=== PATIENT | female | born 1965 | race Caucasian/White ===

== ENCOUNTER 2023-01-31 14:55 | Outpatient (CLI) | payer BC, SELFPAY | END 2023-01-31 14:56 | disposition home or self-care (01) | PROVIDERS: PCP Family Medicine; Visit Provider Family Medicine | DX: Z00.00 Encounter for general adult medical examination without abnormal findings (principal); E78.5 Hyperlipidemia, unspecified; E55.9 Vitamin D deficiency, unspecified; I10 Essential (primary) hypertension | CPT/HCPCS: 80053; 80061; 82306; 84443 ==

== ENCOUNTER 2023-07-18 08:50 | Outpatient (CLI) | payer BC, SELFPAY | END 2023-07-18 08:51 | disposition home or self-care (01) | LOC: AMB 07-27 03:50 | PROVIDERS: PCP Family Medicine; Visit Provider Student in an Organized Health Care Education/Training Program | DX: R06.02 Shortness of breath (principal) | CPT/HCPCS: A0425; A0427 ==

== ENCOUNTER 2023-07-18 09:06 | Emergency (ER) | payer BC, SELFPAY ==
[2023-07-18 09:14] VITALS: BP 134/89; PULSE 86; RESP 18; TEMP 35.7; O2SAT 95
--- NOTE | 2023-07-18 09:28 | XR_ITS ---
Final Report Patient: JUVENCIO CASAS Facility:?[facility] Patient ID:?[id number] Site Patient ID:?[id number]. Site :?[id number] Study:?XRay Chest 2V-07/18/2023 9:53:36 AM Ordering Physician:?DR. RAND Final Report: Indication: Short of breath Technique: PA and lateral chest Comparison: None Findings: No focal or diffuse opacity. No effusion. No pneumothorax. Normal cardiomediastinal silhouette. Partially visualized lower cervical ACDF. No acute appearing osseous abnormalities. Impression: Lungs clear. No acute appearing findings. Dictated by Jodi Hicks MD @ 07/18/2023 9:56:46 AM (Electronic Signatur
[2023-07-18 09:46] LABS: Basophils Absolute Auto 0.03 K/uL (0.00-0.30); Basophils Percent Auto 0.4 % (0.0-3.0); Eosinophils Absolute Auto 0.23 K/uL (0.00-0.50); Eosinophils Percent Auto 2.9 % (0.0-7.0); Hematocrit 42.1 % (33.0-51.0); Hemoglobin* 13.4 gm/dL (12.0-16.0); Immature Granulocytes Abs Auto 0.01 K/uL (0.00-0.30); Immature Granulocytes Pct Auto 0.1 %; Lymphocytes Percent Auto 19.9 % (20-44); Mean Corpuscular HGB Conc 32 gm/dL (32-36); Mean Corpuscular Hemoglobin 28 pg (26-34); Mean Corpuscular Volume 88 fL (80-100); Monocytes Percent Auto 7.2 % (0.0-11.0); Neutrophils Percent Auto 69.5 % (42.0-72.0); Platelet Count* 466 K/uL (140-440); RDW Coefficient of Variation % 13.3 % (11.5-15.5); Red Blood Count 4.79 m/uL (4.00-5.20); White Blood Count* 8.05 K/uL (4.50-11.00)
[2023-07-18 09:48] LABS: Slide Review Reflex No
[2023-07-18 10:03] LABS: Albumin* 4.2 g/dL (3.3-5.0); Chloride* 102 mmol/L (96-114)
[2023-07-18 10:04] LABS: Potassium* 3.7 mmol/L (3.6-5.1); Sodium* 136 mmol/L (135-149)
[2023-07-18 10:06] LABS: Bilirubin Total* 0.3 mg/dL (0.1-1.5); Creatinine* 0.6 mg/dL (0.5-1.5); Estimated Glomerular Filt Rate 106 ml/min
[2023-07-18 10:07] LABS: Alanine Aminotransferase* 39 U/L (4-35); Alkaline Phosphatase* 142 U/L (40-150); Anion Gap 11 mEq/L (7-15); Aspartate Amino Transferase* 36 U/L (12-35); Blood Urea Nitrogen* 14 mg/dL (7-30); Calcium* 9.4 mg/dL (8.4-10.6); Carbon Dioxide* 23 mmol/L (20-32); Glucose* 115 mg/dL (60-115); Total Protein* 7.7 g/dL (6.0-8.3)
[2023-07-18 10:14] LABS: D Dimer Quantitative* 0.22 ug/ml (0.00-0.50)
[2023-07-18 10:17] LABS: NT Pro B Type NatriureticPept* < 20 pg/mL
[2023-07-18 10:17] LABS: PCR FLU A Negative PCR FLU A (Negative); PCR FLU B Negative PCR FLU B (Negative); PCR RSV Negative PCR RSV (Negative); SARS PCR* Negative SARS-CoV-2 (Negative)
--- NOTE | 2023-07-18 10:59 | ED.SOB ---
HPI - SOB/Dyspnea General Date Seen: 07/18/23 Chief Complaint: Shortness of Breath/Dyspnea Stated Complaint: shortness of breath Time Seen by Provider: 07/18/23 09:08 Source: patient Mode of arrival: EMS Limitations: no limitations History of Present Illness HPI Narrative: Patient is a 57-year-old female with history of cigarette smoking, TIA, likely sleep apnea presenting to the emergency department for shortness of breath. She was brought in by EMS. She lives at the [facility] where she has been sober from meth for 7 years. Says she is having increased shortness of breath for past 2-3 days worse at night. Denies fever, cough, chest pain, weakness, numbness, headache, vision changes, abdominal pain, diarrhea, constipation. No history of blood clots in her legs or lungs. Did have bilateral lower extremity swelling couple days ago that has fully resolved now. States she is down to smoking only 1 cigarette today. She does states she has been having some fevers and chills but also states she has been having menopausal symptoms and the same time frame and does not now if but the same thing or different. No history of heart disease. She states she has been feeling very anxious lately is wondering if that is causing her symptoms. Is supposed to get sleep study tomorrow but had to cancel due to issues with transportation. Related Data Home Medications Medication Instructions Recorded Confirmed aspirin 325 mg tablet 325 mg PO QDAY 01/31/23 06/07/23 bupropion HCl 150 mg 24 hr tablet, 150 mg PO QAM 01/31/23 06/07/23 extended release cholecalciferol (vitamin D3) 25 25 mcg PO QDAY 01/31/23 06/07/23 mcg (1,000 unit) capsule fluoxetine 20 mg capsule 60 mg PO QDAY 01/31/23 06/07/23 levomefolate calcium 7.5 mg tablet 7.5 mg PO QDAY 01/31/23 06/07/23 (L-Methylfolate) multivitamin-ferrous 1 tab PO QAM 01/31/23 06/07/23 fumarate-folic acid 18 mg-400 mcg tablet (Certavite-Antioxidant) oxcarbazepine 150 mg tablet 150 mg PO QDAY 01/31/23 06/07/23 (Trileptal) oxcarbazepine 300 mg tablet 300 mg PO BID 01/31/23 06/07/23 (Trileptal) nortriptyline 25 mg capsule 25 mg PO QHS 06/07/23 06/07/23 Previous Rx's Medication Instructions Recorded atorvastatin 20 mg tablet 20 mg PO QDAY #90 tabs 06/07/23 losartan 25 mg tablet 25 mg PO QDAY #90 tabs 06/07/23 Allergies Allergy/AdvReac Type Severity Reaction Status Date / Time acetaminophen [From [place]] AdvReac Intermediate Vomiting Verified 06/07/23 14:03 gabapentin AdvReac Intermediate Vomiting Verified 06/07/23 14:03 hydrocodone [From [place]] AdvReac Intermediate Vomiting Verified 06/07/23 14:03 Review of Systems Status of ROS: Reports: 10 or more systems reviewed and unremarkable except as noted in History and below [facility] Medical History History of echocardiogram ?Z92.89 - Personal history of other medical treatment (ICD-10) Bilateral lower extremity edema ?R60.0 - Localized edema (ICD-10) Polysubstance use disorder ?F19.90 - Other psychoactive substance use, unspecified, uncomplicated (ICD-10) History of kidney stones ?Z87.442 - Personal history of urinary calculi (ICD-10) History of latent tuberculosis ?Z86.15 - Personal history of latent tuberculosis infection (ICD-10) History of recurrent TIAs (~2014) ?Z86.73 - Personal history of transient ischemic attack (TIA), and cerebral infarction without residual deficits (ICD-10) Hiatal hernia ?K44.9 - Diaphragmatic hernia without obstruction or gangrene (ICD-10) Lung nodule ?R91.1 - Solitary pulmonary nodule (ICD-10) Menopausal symptoms ?N95.1 - Menopausal and female climacteric states (ICD-10) Snores ?R06.83 - Snoring (ICD-10) PTSD (post-traumatic stress disorder) ?F43.10 - Post-traumatic stress disorder, unspecified (ICD-10) Depression ?F32.A - Depression, unspecified (ICD-10) BMI 37.0-37.9, adult ?Z68.37 - Body mass index [BMI] 37.0-37.9, adult (ICD-10) History of CVA (cerebrovascular accident) ?Z86.73 - Personal history of transient ischemic attack (TIA), and cerebral infarction without residual deficits (ICD-10) Surgical History History of fusion of cervical spine ?Z98.1 - Arthrodesis status (ICD-10) Family History Mother Coronary artery disease Depression Anxiety disorder Maternal Grandfather Coronary artery disease Maternal Grandmother Coronary artery disease Aunt Diabetes Sister Diabetes Depression Anxiety disorder Uncle Diabetes Social History Narrative: Single, lives in a recovery home in [place], 2 grown children in [place] Does not drink alcohol for 20 years, before then alcoholism Smokes 1 cigarette a day before then over 10 pack years History of methamphetamine addiction, In recovery since 2016 Smoking Status: Former smoker Non-prescribed substance use: former substance user Little interest or pleasure in doing things: several days Feeling down, depressed, or hopeless: several days Exam Narrative: Exam Narrative: Const: Well-nourished, Well-developed, in no distress Eyes: PERRL, no conjunctival injection, and symmetrical lids HENT: Atraumatic external nose and ears. Moist mucous membranes. Neck: Symmetric, trachea midline, No thyromegaly. CVS: RRR, No murmurs or gallops. Peripheral pulses 2+ and equal in all extremities RESP: Unlabored respiratory effort. Clear to auscultation bilaterally. GI: Nontender/Nondistended, No rebound or guarding. MSK:Extremities w/o deformity, Normal Active ROM Skin: Warm, Dry. No rashes or lesions. Neuro: Normal Muscle tone, No focal neurological deficits. Psych: Awake, Alert, & Oriented x3. Appropriate mood and affect. Const: Vital Signs, click to edit/add: Vital Signs - 24 hr 07/18/23 09:14 Temperature 96.3 F L Pulse Rate [Pulse Oximeter] 86 Respiratory Rate 18 Blood Pressure [Le ft Upper Arm] 134/89 Pulse Oximetry 95 Oxygen Delivery Me thod Room Air Course Vital Signs Vital signs: Initial Vital Signs Temperature 96.3 F L 07/18/23 09:14 Temperature Source Temporal Artery Scan 07/18/23 09:14 Pulse Rate 86 07/18/23 09:14 Pulse Rhythm Regular 07/18/23 09:14 Respiratory Rate 18 07/18/23 09:14 Blood Pressure 134/89 07/18/23 09:14 Blood Pressure Mean 104 07/18/23 09:14 Blood Pressure Position Supine 07/18/23 09:14 Pulse Oximetry 95 07/18/23 09:14 Oxygen Delivery Method Room Air 07/18/23 09:14 Vital Signs Temperature 96.3 F L 07/18/23 09:14 Pulse Rate 86 07/18/23 09:14 Respiratory Rate 18 07/18/23 09:14 Blood Pressure 134/89 07/18/23 09:14 Pulse Oximetry 95 07/18/23 09:14 Oxygen Delivery Method Room Air 07/18/23 09:14 Temperature 96.3 F L 07/18/23 09:14 Pulse Rate 86 07/18/23 09:14 Respiratory Rate 18 07/18/23 09:14 Blood Pressure 134/89 07/18/23 09:14 Pulse Oximetry 95 07/18/23 09:14 Oxygen Delivery Method Room Air 07/18/23 09:14 MDM - SOB/Dyspnea MDM Narrative Medical decision making narrative: Patient is a 57-year-old female presenting for shortness of breath. Head this time differential includes pneumonia, viral infection, pneumothorax, ACS, PE. Seems unlikely to be heart failure at this time but I will order a BNP. COVID/flu/RSV test ordered. Troponin EKG ordered. D-dimer order to look for signs of PE. Chest x-ray was show signs of pneumonia or pneumothorax. Also ordered CBC and CMP. All lab work returned showing no concerning abnormalities. At this time PE was ruled out with normal D-dimer. BNP is within normal limits and very unlikely to be heart failure related. COVID/flu/RSV is negative. EKG and troponin showed no concerning abnormalities. Chest x-ray shows no signs of pneumonia or pneumothorax. At this time I cannot definitively say was causing shortness of breath. Does not appear to be anything emergent that require hospitalization or treatment at this time. I do not hear any wheezing when I auscultated her and do not believe this is a COPD exacerbation. She has never been diagnosed with COPD. Patient is otherwise doing well it can be discharged home. This could be anxiety related like she was concerned about or could be a viral syndrome. She does states symptoms are worse at night and this could be related to her likely sleep apnea. Lab Data Labs: Lab Results 07/18/23 07/18/23 07/18/23 Range/Units 09:28 09:35 Unknown WBC 8.05 (4.50-11.00) K/uL RBC 4.79 (4.00-5.20) m/uL Hgb 13.4 (12.0-16.0) gm/dL Hct 42.1 (33.0-51.0) % MCV 88 (80-100) fL MCH 28 (26-34) pg MCHC 32 (32-36) gm/dL RDW Coeff of Derick 13.3 (11.5-15.5) % Plt Count 466 H (140-440) K/uL Neut % (Auto) 69.5 (42.0-72.0) % Lymph % (Auto) 19.9 L (20-44) % [place] % (Auto) 7.2 (0.0-11.0) % Eos % (Auto) 2.9 (0.0-7.0) % Baso % (Auto) 0.4 (0.0-3.0) % Neut # (Auto) 5.60 (1.7-7.0) K/uL Lymph # (Auto) 1.60 (0.90-2.90) K/uL [place] # (Auto) 0.60 (0.00-0.90) K/UL Eos # (Auto) 0.23 (0.00-0.50) K/uL Baso # (Auto) 0.03 (0.00-0.30) K/uL Abs Immat Gran (auto) 0.01 (0.00-0.30) K/uL Imm/Tot Granulo (auto) 0.1 % D-Dimer Quant (PE/DVT) 0.22 (0.00-0.50) ug/ml Sodium 136 (135-149) mmol/L Potassium 3.7 (3.6-5.1) mmol/L Chloride 102 (96-114) mmol/L Carbon Dioxide 23 (20-32) mmol/L Anion Gap 11 (7-15) mEq/L BUN 14 (7-30) mg/dL Creatinine 0.6 (0.5-1.5) mg/dL Estimated GFR 106 ml/min Glucose 115 (60-115) mg/dL Calcium 9.4 (8.4-10.6) mg/dL Total Bilirubin 0.3 (0.1-1.5) mg/dL AST 36 H (12-35) U/L ALT 39 H (4-35) U/L Alkaline Phosphatase 142 (40-150) U/L NT-Pro-B Natriuret Pep < 20 pg/mL Total Protein 7.7 (6.0-8.3) g/dL Albumin 4.2 (3.3-5.0) g/dL SARS-CoV-2 (PCR) Negative SARS-CoV-2 (Negative) Influenza Type A (PCR) Negative PCR FLU A (Negative) Influenza Type B (PCR) Negative PCR FLU B (Negative) RSV (PCR) Negative PCR RSV (Negative) POC Troponin I 0.00 L (0.01-0.04) ng/ml Imaging Data Chest x-ray: Radiologist's impression: Lungs clear. No acute appearing findings. Dictated by Jodi Hicks MD @ 07/18/2023 9:56:46 AM ECG Data Attestation: I personally reviewed and interpreted this ECG as follows: Prior ECG tracings: not available for review Interpretation: Normal sinus rhythm with a rate of 81 beats per minute, incomplete right bundle branch block, otherwise normal intervals, rightward axis, no ST or T-wave abnormalities Discharge Plan Discharge Clinical Impression: Shortness of breath Patient Disposition: Home, Self-Care Condition: Stable Instructions: Shortness of Breath (ED) Additional Instructions: Tried to get your so sleep study re scheduled. Return to emergency department for new or worsening symptoms Prescriptions: No Action aspirin 325 mg tablet 325 mg PO QDAY bupropion HCl 150 mg tablet extended release 24 hr 150 mg PO QAM fluoxetine 20 mg capsule 60 mg PO QDAY oxcarbazepine [Trileptal] 150 mg tablet 150 mg PO QDAY oxcarbazepine [Trileptal] 300 mg tablet 300 mg PO BID cholecalciferol (vitamin D3) 25 mcg (1,000 unit) capsule 25 mcg PO QDAY Certavite-Antioxidant 18-400 mg-mcg tablet 1 tab PO QAM levomefolate calcium [L-Methylfolate] 7.5 mg tablet 7.5 mg PO QDAY nortriptyline 25 mg capsule 25 mg PO QHS atorvastatin 20 mg tablet 20 mg PO QDAY Qty: 90 3RF losartan 25 mg tablet 25 mg PO QDAY Qty: 90 3RF Follow Up/Referrals: Sheila Chan MD [Primary Care Provider] - Stand Alone Forms: [employer] Info Instructions
[2023-07-18 11:12] VITALS: BP 129/76; PULSE 72; RESP 16; TEMP 36.1; O2SAT 94
--- NOTE | 2023-07-18 11:23 | ED.NURSE ---
Patient discharged. Shireen from [facility] coming to pick patient up.
== END 2023-07-18 11:25 | disposition home or self-care (01) ==
PROVIDERS: Emergency Provider Student in an Organized Health Care Education/Training Program; PCP Family Medicine
DX: R06.02 Shortness of breath (principal)
CPT/HCPCS: 36415; 71046; 80053; 83880; 84484; 85025; 85379; 87631; 93005; 99283; 99284; 99285

== ENCOUNTER 2023-07-19 20:52 | Outpatient (CLI) | payer BC, SELFPAY ==
--- NOTE | 2023-08-02 09:47 | W.PM.SLEEP ---
Sleep Study Details Details Interpreting Provider: Vincent Date of Sleep Study: 07/19/23 Sleep Study Details: STUDY TYPE:? Hospital-based with CPAP titration ? BMI:? 46.3 ORDERING PROVIDER:? Rocio INDICATION:? Concerns about sleep apnea ? SLEEP SUMMARY:? 277 minutes total sleep time RESPIRATORY SUMMARY:? Mean oxygen awake 95, asleep 94, minimum 82 6 minutes oxygen between 80 and 88% AHI 30.7, supine AHI 63.7, nonsupine AHI 16.8. No supine REM sleep was seen. CPAP was titrated or initiated at least at a pressure of 5 which was not terribly effective. The patient did not tolerate this. PERIODIC LIMB MOVEMENTS OF SLEEP:? None CARDIAC:? Awake 74, asleep 71. No a arrhythmias IMPRESSION:? Severe obstructive sleep apnea with intolerance of CPAP during titration attempt. RECOMMENDATION: Recommend CPAP evaluation with desensitization training. Patient may also do better with a bilevel. Alternatives would include weight loss and/or dental appliance.
== END 2023-07-19 20:53 | disposition home or self-care (01) ==
LOC: SLEEP 20:53
PROVIDERS: PCP Family Medicine; Visit Provider Family Medicine
DX: G47.33 Obstructive sleep apnea (adult) (pediatric) (principal)
CPT/HCPCS: 95810

== ENCOUNTER 2023-09-08 23:54 | Outpatient (CLI) | payer BC, SELFPAY | END 2023-09-08 23:55 | disposition home or self-care (01) | LOC: AMB 09-14 05:29 | PROVIDERS: PCP Family Medicine; Visit Provider Internal Medicine | DX: M54.9 Dorsalgia, unspecified (principal) | CPT/HCPCS: A0998 ==

== ENCOUNTER 2023-09-09 22:06 | Outpatient (CLI) | payer BC, SELFPAY | END 2023-09-09 22:07 | disposition home or self-care (01) | LOC: AMB 09-14 08:23 | PROVIDERS: PCP Family Medicine; Visit Provider Family Medicine | DX: R10.9 Unspecified abdominal pain (principal) | CPT/HCPCS: A0425; A0433 ==

== ENCOUNTER 2023-09-09 22:48 | Emergency (ER) | payer BC, SELFPAY ==
[2023-09-09 22:51] VITALS: BP 132/83; PULSE 87; RESP 24; TEMP 36.2; O2SAT 92; BMI 35.1
--- NOTE | 2023-09-09 23:14 | CT_ITS ---
Patient: KENAN CASAS Facility:?[facility] Patient ID:?[id number] Site Patient ID:?[id number]. Site :?[id number] Study:?CT-Abdomen/Pelvis W/O-09/09/2023 11:40:21 PM Ordering Physician:LISY Final Report: INDICATION: Left flank pain. TECHNIQUE: CT abdomen and pelvis without contrast. COMPARISON: None. FINDINGS: Lower chest: Unremarkable. Liver: Hepatic steatosis. Gallbladder and bile ducts: No stones or inflammation. No biliary ductal dilatation. Spleen: Normal in size. Adrenal glands: Normal in size. No nodules. Pancreas: Unremarkable. No mass or inflammation. Kidneys: Malrotated right kidney. No stones or hydronephrosis. GI tract: Unremarkable. Normal in caliber. No evidence of obstruction. Normal appendix. Lymph nodes: No lymphadenopathy. Vasculature: Abdominal aorta is normal in caliber. Abdominal wall/Omentum/Peritoneum: Fat containing umbilical hernia. No free air or significant free fluid. Pelvis: Unremarkable. Bones: Degenerative changes. IMPRESSION: 1. No acute abdominal or pelvic abnormality on this noncontrast examination. 2. Malrotated right kidney. 3. Hepatic steatosis. Please note that all CT scans at this facility use dose modulation, iterative reconstruction, and/or weight-based dosing when appropriate to reduce radiation dose to as low as reasonably achievable. Dictated by Joseph Pemberton MD @ 09/10/2023 12:37:33 AM Signed by:?Joseph Pemberton MD @09/10/2023 12:37:33 AM (Electronic Signature)
--- NOTE | 2023-09-09 23:16 | ED.GENADULT ---
HPI - General Adult General Chief complaint: Abdominal Pain <Marcia Cantu MD - Last Filed: 09/09/23 23:28> Stated complaint: Abdominal Pain <Marcia Cantu MD - Last Filed: 09/09/23 23:28> Time Seen by Provider: 09/09/23 23:07 <Marcia Cantu MD - Last Filed: 09/09/23 23:28> Source: patient <Marcia Cantu MD - Last Filed: 09/09/23 23:28> Mode of arrival: EMS <Marcia Cantu MD - Last Filed: 09/09/23 23:28> Limitations: no limitations <Marcia Cantu MD - Last Filed: 09/09/23 23:28> History of Present Illness HPI narrative: 57-year-old female presenting via EMS for abdominal pain. She states that the pain started yesterday. Pain is located in the left lower quadrant and left flank area. Patient states that she has been vomiting all day and has had sweats. She denies any fevers. She states she has been urinating more frequently than usual, denies any change in the color of her urine, denies blood in her urine. Last bowel movement was earlier in the day and was normal. She denies feeling constipated. Nothing seems to make the pain better or worse. <Marcia Cantu MD - Last Filed: 09/09/23 23:28> Related Data Home medications: Home Medications Medication Instructions Recorded Confirmed aspirin 325 mg tablet 325 mg PO QDAY 01/31/23 06/07/23 bupropion HCl 150 mg 24 hr tablet, 150 mg PO QAM 01/31/23 06/07/23 extended release cholecalciferol (vitamin D3) 25 25 mcg PO QDAY 01/31/23 06/07/23 mcg (1,000 unit) capsule fluoxetine 20 mg capsule 60 mg PO QDAY 01/31/23 09/09/23 levomefolate calcium 7.5 mg tablet 7.5 mg PO QDAY 01/31/23 06/07/23 (L-Methylfolate) multivitamin-ferrous 1 tab PO QAM 01/31/23 06/07/23 fumarate-folic acid 18 mg-400 mcg tablet (Certavite-Antioxidant) oxcarbazepine 150 mg tablet 150 mg PO QDAY 01/31/23 06/07/23 (Trileptal) oxcarbazepine 300 mg tablet 300 mg PO BID 01/31/23 09/09/23 (Trileptal) nortriptyline 25 mg capsule 25 mg PO QHS 06/07/23 06/07/23 Previous Rx's Medication Instructions Recorded atorvastatin 20 mg tablet 20 mg PO QDAY #90 tabs 06/07/23 losartan 25 mg tablet 25 mg PO QDAY #90 tabs 06/07/23 <Marcia Cantu MD - Last Filed: 09/09/23 23:28> Allergies/adverse reactions: Allergies Allergy/AdvReac Type Severity Reaction Status Date / Time acetaminophen [From [place]] AdvReac Intermediate Vomiting Verified 09/09/23 23:01 gabapentin AdvReac Intermediate Vomiting Verified 09/09/23 23:01 hydrocodone [From [place]] AdvReac Intermediate Vomiting Verified 09/09/23 23:01 <Marcia Cantu MD - Last Filed: 09/09/23 23:28> Review of Systems Status of ROS: Reports: 10 or more systems reviewed and unremarkable except as noted in History and below <Marcia Cantu MD - Last Filed: 09/09/23 23:28> [facility] Medical History: Medical History History of echocardiogram ?Z92.89 - Personal history of other medical treatment (ICD-10) Bilateral lower extremity edema ?R60.0 - Localized edema (ICD-10) Polysubstance use disorder ?F19.90 - Other psychoactive substance use, unspecified, uncomplicated (ICD-10) History of kidney stones ?Z87.442 - Personal history of urinary calculi (ICD-10) History of latent tuberculosis ?Z86.15 - Personal history of latent tuberculosis infection (ICD-10) History of recurrent TIAs (~2015) ?Z86.73 - Personal history of transient ischemic attack (TIA), and cerebral infarction without residual deficits (ICD-10) Hiatal hernia ?K44.9 - Diaphragmatic hernia without obstruction or gangrene (ICD-10) Lung nodule ?R91.1 - Solitary pulmonary nodule (ICD-10) Menopausal symptoms ?N95.1 - Menopausal and female climacteric states (ICD-10) Snores ?R06.83 - Snoring (ICD-10) PTSD (post-traumatic stress disorder) ?F43.10 - Post-traumatic stress disorder, unspecified (ICD-10) Depression ?F32.A - Depression, unspecified (ICD-10) BMI 37.0-37.9, adult ?Z68.37 - Body mass index [BMI] 37.0-37.9, adult (ICD-10) History of CVA (cerebrovascular accident) ?Z86.73 - Personal history of transient ischemic attack (TIA), and cerebral infarction without residual deficits (ICD-10) <Marcia Cantu MD - Last Filed: 09/09/23 23:28> Surgical History: Surgical History History of fusion of cervical spine ?Z98.1 - Arthrodesis status (ICD-10) <Marcia Cantu MD - Last Filed: 09/09/23 23:28> Family History: Family History Mother Coronary artery disease Depression Anxiety disorder Maternal Grandfather Coronary artery disease Maternal Grandmother Coronary artery disease Aunt Diabetes Sister Diabetes Depression Anxiety disorder Uncle Diabetes <Marcia Cantu MD - Last Filed: 09/09/23 23:28> Social History: Social History Narrative: Single, lives in a recovery home in [place], 2 grown children in [place] Does not drink alcohol for 20 years, before then alcoholism Smokes 1 cigarette a day before then over 10 pack years History of methamphetamine addiction, In recovery since 2016 Smoking Status: Current every day smoker What tobacco products do you use: cigarettes Do you use any of these nicotine containing products: None Second hand tobacco smoke exposure: No How often do you have a drink containing alcohol: never AUDIT-C Alcohol total score: 0 Non-prescribed substance use: former substance user Little interest or pleasure in doing things: several days Feeling down, depressed, or hopeless: several days <Marcia Cantu MD - Last Filed: 09/09/23 23:28> Exam Narrative: Exam Narrative: Overweight patient in mild distress. Alert and oriented. Answers questions appropriately. Mood and affect are appropriate. Thoughts are goal oriented and rational. No tangential or magical thinking noted. Patient speaks in full sentences without needing to catch her breath. Patient appears diaphoretic. HEENT: Normocephalic atraumatic. Pupils are equally round reactive to light. Extraocular muscles are intact. Conjunctivae are moist without any icterus noted. Moist mucous membranes. Neck is soft. Cardiovascular: Heart is regular rate and rhythm S1 and S2 are present without any murmurs. Lungs: Clear to auscultation bilaterally no wheezes rhonchi or rales are appreciated. Patient takes deep breaths without any discomfort. Abdomen: Soft and delete nondistended with normal bowel sounds. She has some mild left-sided abdominal tenderness, positive left-sided CVA tenderness. Extremities: Bilateral lower extremities are without edema. Skin: Well perfused without any obvious rashes. <Marcia Cantu MD - Last Filed: 09/09/23 23:28> Const: Vital Signs, click to edit/add: Vital Signs - 24 hr 09/09/23 22:51 Temperature 97.1 F L Pulse Rate [Pulse Oximeter] 87 Respiratory Rate 24 Blood Pressure [Ri ght Upper Arm] 132/83 Pulse Oximetry 92 Oxygen Delivery Me thod Room Air <Marcia Cantu MD - Last Filed: 09/09/23 23:28> Vital Signs, click to edit/add: Vital Signs - 24 hr 09/09/23 22:51 Temperature 97.1 F L Pulse Rate [Pulse Oximeter] 87 Respiratory Rate 24 Blood Pressure [Ri ght Upper Arm] 132/83 Pulse Oximetry 92 Oxygen Delivery Me thod Room Air <Tomasz Copeland DO - Last Filed: 09/10/23 04:28> Course Course ED Course: IV is established and patient is started on IV fluids, Toradol and Zofran. Labs are drawn and abdominal CT scan without contrast is ordered. Care is transferred to Dr. Copeland. <Marcia Cantu MD - Last Filed: 09/09/23 23:28> Vital Signs Vital signs: Initial Vital Signs Temperature 97.1 F L 09/09/23 22:51 Temperature Source Temporal Artery Scan 09/09/23 22:51 Pulse Rate 87 09/09/23 22:51 Pulse Rhythm Regular 09/09/23 22:51 Pulse Strength 3+ Normal 09/09/23 22:51 Respiratory Rate 24 09/09/23 22:51 Blood Pressure 132/83 09/09/23 22:51 Blood Pressure Mean 99 09/09/23 22:51 Blood Pressure Position Supine 09/09/23 22:51 Pulse Oximetry 92 09/09/23 22:51 Oxygen Delivery Method Room Air 09/09/23 22:51 Vital Signs Temperature 97.1 F L 09/09/23 22:51 Pulse Rate 87 09/09/23 22:51 Respiratory Rate 24 09/09/23 22:51 Blood Pressure 132/83 09/09/23 22:51 Pulse Oximetry 92 09/09/23 22:51 Oxygen Delivery Method Room Air 09/09/23 22:51 Temperature 97.1 F L 09/09/23 22:51 Pulse Rate 87 09/09/23 22:51 Respiratory Rate 09/09/23 22:51 Blood Pressure 132/83 09/09/23 22:51 Pulse Oximetry 92 09/09/23 22:51 Oxygen Delivery Method Room Air 09/09/23 22:51 <Marcia Cantu MD - Last Filed: 09/09/23 23:28> Initial Vital Signs Temperature 97.1 F L 09/09/23 22:51 Temperature Source Temporal Artery Scan 09/09/23 22:51 Pulse Rate 87 09/09/23 22:51 Pulse Rhythm Regular 09/09/23 22:51 Pulse Strength 3+ Normal 09/09/23 22:51 Respiratory Rate 09/09/23 22:51 Blood Pressure 132/83 09/09/23 22:51 Blood Pressure Mean 99 09/09/23 22:51 Blood Pressure Position Supine 09/09/23 22:51 Pulse Oximetry 92 09/09/23 22:51 Oxygen Delivery Method Room Air 09/09/23 22:51 Vital Signs Temperature 97.1 F L 09/09/23 22:51 Pulse Rate 87 09/09/23 22:51 Respiratory Rate 09/09/23 22:51 Blood Pressure 132/83 09/09/23 22:51 Pulse Oximetry 92 09/09/23 22:51 Oxygen Delivery Method Room Air 09/09/23 22:51 Temperature 97.1 F L 09/09/23 22:51 Pulse Rate 87 09/09/23 22:51 Respiratory Rate 24 09/09/23 22:51 Blood Pressure 132/83 09/09/23 22:51 Pulse Oximetry 92 09/09/23 22:51 Oxygen Delivery Method Room Air 09/09/23 22:51 <Tomasz Copeland DO - Last Filed: 09/10/23 04:28> Medications Administered Medications: Discontinued Medications Generic Name Dose Route Start Last Admin Trade Name Freq PRN Reason Stop Dose Admin Sodium Chloride 1,000 mls @ 1,000 mls/hr 09/09/23 23:15 09/09/23 23:56 0.9 % Sodium Chloride 1000 Ml IV 09/10/23 00:14 1,000 mls/hr .Q1H BAILEY Administration Ketorolac Tromethamine 30 mg 09/09/23 23:14 09/09/23 23:56 Ketorolac 30 Mg/Ml Inj IVP 09/09/23 23:15 30 mg ONCE ONE Administration Ondansetron HCl 4 mg 09/09/23 23:14 09/09/23 23:56 Ondansetron 2 Mg/Ml Inj IVP 09/09/23 23:15 4 mg ONCE ONE Administration <Marcia Cantu MD - Last Filed: 09/09/23 23:28> Discontinued Medications Generic Name Dose Route Start Last Admin Trade Name Freq PRN Reason Stop Dose Admin Sodium Chloride 1,000 mls @ 1,000 mls/hr 09/09/23 23:15 09/09/23 23:56 0.9 % Sodium Chloride 1000 Ml IV 09/10/23 00:14 1,000 mls/hr .Q1H BAILEY Administration Ketorolac Tromethamine 30 mg 09/09/23 23:14 09/09/23 23:56 Ketorolac 30 Mg/Ml Inj IVP 09/09/23 23:15 30 mg ONCE ONE Administration Ondansetron HCl 4 mg 09/09/23 23:14 09/09/23 23:56 Ondansetron 2 Mg/Ml Inj IVP 09/09/23 23:15 4 mg ONCE ONE Administration <Tomasz Copeland DO - Last Filed: 09/10/23 04:28> Medical Decision Making MDM Narrative Medical decision making narrative: Patient signed out to me pending lab work and imaging. CT scan of the abdomen pelvis showed no concerning abnormalities. CT scan returned showing no concerning abnormalities. She is tender to palpation in her left paraspinal region this seems likely to be a muscle strain. His lab work returned showing no concerning abnormalities. She is feeling better after the Toradol. She is otherwise doing well at this time will be discharged home.? <Tomasz Copeland DO - Last Filed: 09/10/23 04:28> Lab Data Labs: Lab Results 09/09/23 Range/Units 23:40 WBC 9.42 (4.50-11.00) K/uL RBC 4.68 (4.00-5.20) m/uL Hgb 13.2 (12.0-16.0) gm/dL Hct 41.3 (33.0-51.0) % MCV 88 (80-100) fL MCH 28 (26-34) pg MCHC 32 (32-36) gm/dL RDW Coeff of Derick 13.5 (11.5-15.5) % Plt Count 498 H (140-440) K/uL Neut % (Auto) 60.5 (42.0-72.0) % Lymph % (Auto) 27.5 (20-44) % Preston % (Auto) 8.8 (0.0-11.0) % Eos % (Auto) 2.7 (0.0-7.0) % Baso % (Auto) 0.3 (0.0-3.0) % Neut # (Auto) 5.70 (1.7-7.0) K/uL Lymph # (Auto) 2.59 (0.90-2.90) K/uL Preston # (Auto) 0.80 (0.00-0.90) K/UL Eos # (Auto) 0.25 (0.00-0.50) K/uL Baso # (Auto) 0.03 (0.00-0.30) K/uL Abs Immat Gran (auto) 0.02 (0.00-0.30) K/uL Imm/Tot Granulo (auto) 0.2 % Lactate 1.5 (0.5-1.9) mmol/L <Marcia Cantu MD - Last Filed: 09/09/23 23:28> Lab Results 09/09/23 Range/Units 23:40 WBC 9.42 (4.50-11.00) K/uL RBC 4.68 (4.00-5.20) m/uL Hgb 13.2 (12.0-16.0) gm/dL Hct 41.3 (33.0-51.0) % MCV 88 (80-100) fL MCH 28 (26-34) pg MCHC 32 (32-36) gm/dL RDW Coeff of Derick 13.5 (11.5-15.5) % Plt Count 498 H (140-440) K/uL Neut % (Auto) 60.5 (42.0-72.0) % Lymph % (Auto) 27.5 (20-44) % Preston % (Auto) 8.8 (0.0-11.0) % Eos % (Auto) 2.7 (0.0-7.0) % Baso % (Auto) 0.3 (0.0-3.0) % Neut # (Auto) 5.70 (1.7-7.0) K/uL Lymph # (Auto) 2.59 (0.90-2.90) K/uL Preston # (Auto) 0.80 (0.00-0.90) K/UL Eos # (Auto) 0.25 (0.00-0.50) K/uL Baso # (Auto) 0.03 (0.00-0.30) K/uL Abs Immat Gran (auto) 0.02 (0.00-0.30) K/uL Imm/Tot Granulo (auto) 0.2 % Lactate 1.5 (0.5-1.9) mmol/L <Tomasz Copeland DO - Last Filed: 09/10/23 04:28> Imaging Data CT scan abdomen and pelvis: Attestation: I have reviewed the pertinent imaging results. <Tomasz Copeland DO - Last Filed: 09/10/23 04:28> Radiologist's impression: 1. No acute abdominal or pelvic abnormality on this noncontrast examination. 2. Malrotated right kidney. 3. Hepatic steatosis. Please note that all CT scans at this facility use dose modulation, iterative reconstruction, and/or weight-based dosing when appropriate to reduce radiation dose to as low as reasonably achievable. Dictated by Joseph Pemberton MD @ 09/10/2023 12:37:33 AM <Tomasz Copeland DO - Last Filed: 09/10/23 04:28> Discharge Plan Discharge Clinical Impression: Acute flank pain <Marcia Cantu MD - Last Filed: 09/09/23 23:28> Patient Disposition: Home, Self-Care <Marcia Cantu MD - Last Filed: 09/09/23 23:28> Condition: Improved <Marcia Cantu MD - Last Filed: 09/09/23 23:28> Prescriptions: No Action aspirin 325 mg tablet 325 mg PO QDAY bupropion HCl 150 mg tablet extended release 24 hr 150 mg PO QAM fluoxetine 20 mg capsule 60 mg PO QDAY oxcarbazepine [Trileptal] 150 mg tablet 150 mg PO QDAY oxcarbazepine [Trileptal] 300 mg tablet 300 mg PO BID cholecalciferol (vitamin D3) 25 mcg (1,000 unit) capsule 25 mcg PO QDAY Certavite-Antioxidant 18-400 mg-mcg tablet 1 tab PO QAM levomefolate calcium [L-Methylfolate] 7.5 mg tablet 7.5 mg PO QDAY nortriptyline 25 mg capsule 25 mg PO QHS atorvastatin 20 mg tablet 20 mg PO QDAY Qty: 90 3RF losartan 25 mg tablet 25 mg PO QDAY Qty: 90 3RF <Marcia Cantu MD - Last Filed: 09/09/23 23:28> Follow Up/Referrals: Sheila Chan MD [Primary Care Provider] - <Marcia Cantu MD - Last Filed: 09/09/23 23:28> Stand Alone [facility]: [facility] <Marcia Cantu MD - Last Filed: 09/09/23 23:28>
[2023-09-09] MEDS: KETOROLAC 30 MG/ML inj IVP (23:56)
[2023-09-09] MEDS: 0.9 % SODIUM CHLORIDE 1000 ml 1,000 ML IV (23:56)
[2023-09-09] MEDS: ONDANSETRON 2 MG/ML inj 4 MG IVP (23:56)
[2023-09-10 00:19] LABS: Lactate* 1.5 mmol/L (0.5-1.9)
[2023-09-10 00:37] LABS: Basophils Absolute Auto 0.03 K/uL (0.00-0.30); Basophils Percent Auto 0.3 % (0.0-3.0); Eosinophils Absolute Auto 0.25 K/uL (0.00-0.50); Eosinophils Percent Auto 2.7 % (0.0-7.0); Hematocrit 41.3 % (33.0-51.0); Hemoglobin* 13.2 gm/dL (12.0-16.0); Immature Granulocytes Abs Auto 0.02 K/uL (0.00-0.30); Immature Granulocytes Pct Auto 0.2 %; Lymphocytes Absolute Auto 2.59 K/uL (0.90-2.90); Lymphocytes Percent Auto 27.5 % (20-44); Mean Corpuscular HGB Conc 32 gm/dL (32-36); Mean Corpuscular Hemoglobin 28 pg (26-34); Mean Corpuscular Volume 88 fL (80-100); Monocytes Percent Auto 8.8 % (0.0-11.0); Neutrophils Percent Auto 60.5 % (42.0-72.0); Platelet Count* 498 K/uL (140-440); RDW Coefficient of Variation % 13.5 % (11.5-15.5); Red Blood Count 4.68 m/uL (4.00-5.20); White Blood Count* 9.42 K/uL (4.50-11.00)
[2023-09-10 00:43] LABS: Slide Review Reflex No
[2023-09-10 00:49] LABS: Albumin* 4.3 g/dL (3.3-5.0); Chloride* 104 mmol/L (96-114); Potassium* 3.7 mmol/L (3.6-5.1); Sodium* 138 mmol/L (135-149)
[2023-09-10 00:51] LABS: Anion Gap 9 mEq/L (7-15); Bilirubin Direct* 0.1 mg/dL (0.0-0.5); Bilirubin Total* 0.3 mg/dL (0.1-1.5); Carbon Dioxide* 25 mmol/L (20-32); Creatinine* 0.6 mg/dL (0.5-1.5); Est. Creatinine Clearance* 87.64; Estimated Glomerular Filt Rate 106 ml/min; Total Protein* 7.8 g/dL (6.0-8.3)
[2023-09-10 00:52] LABS: Alanine Aminotransferase* 28 U/L (4-35); Alkaline Phosphatase* 158 U/L (40-150); Aspartate Amino Transferase* 27 U/L (12-35); Blood Urea Nitrogen* 11 mg/dL (7-30); Calcium* 9.4 mg/dL (8.4-10.6); Glucose* 110 mg/dL (60-115); Lipase* 120 U/L (23-300)
[2023-09-10 04:57] LABS: Appearance Urine Clear (Clear); Color Urine Yellow (Yellow)
[2023-09-10 04:58] LABS: Bilirubin Urine Negative (Negative); Blood Urine Trace-intact (Negative); Glucose Urine Negative (Negative); Ketones Urine Negative (Negative); Nitrite Urine Negative (Negative); Protein Urine Negative (Negative); Urobilinogen Urine 0.2 (0.2-1.0); pH Urine 5.5 (5.0-8.5)
[2023-09-10 04:59] LABS: Bacteria Urine Moderate; Leukocyte Esterase Urine Negative (Negative); Squamous Epithelial Cell Urine Many (None-Few)
== END 2023-09-10 03:30 | disposition home or self-care (01) ==
PROVIDERS: Family Medicine; Emergency Provider Student in an Organized Health Care Education/Training Program; PCP Family Medicine
DX: R10.9 Unspecified abdominal pain (principal)
CPT/HCPCS: 36415; 74176; 80048; 80076; 81001; 83605; 83690; 85025; 87086; 96361; 96374; 96375; 99283; 99284; J1885; J2405; J7030

== ENCOUNTER 2023-12-11 13:10 | Outpatient (CLI) | payer BC, SELFPAY | END 2023-12-11 13:11 | disposition home or self-care (01) | LOC: NFLDREF 12-13 12:01 | PROVIDERS: PCP Family Medicine; Referring Provider Family Medicine; Visit Provider Family Medicine | DX: I10 Essential (primary) hypertension (principal); E55.9 Vitamin D deficiency, unspecified; M81.0 Age-related osteoporosis without current pathological fracture | CPT/HCPCS: 80053; 82306 ==

== ENCOUNTER 2024-11-20 09:33 | Outpatient (CLI) | payer BC, SELFPAY | END 2024-11-20 09:34 | disposition home or self-care (01) | PROVIDERS: PCP Family Medicine; Visit Provider Registered Nurse | DX: Z00.00 Encounter for general adult medical examination without abnormal findings (principal); E78.5 Hyperlipidemia, unspecified; I10 Essential (primary) hypertension | CPT/HCPCS: 80048; 80061 ==